=== PATIENT | female | born 1985 ===

== ENCOUNTER 2019-06-13 17:09 | Emergency (ER) | payer SELFPAY ==
[2019-06-13 17:18] VITALS: BP 142/85
--- NOTE | 2019-06-13 17:24 | Event Note ---
ED Screening Note Date of service: 06/13/19 Time: 17:17 ED Screening Note: 34 y o female presents cc of loss of sensation in hands and feet 20 minutes ago, cc of cramping This initial assessment/diagnostic orders/clinical plan/treatment(s) is/are subject to change based on patients health status, clinical progression and re- assessment by fellow clinical providers in the ED. Further treatment and workup at subsequent clinical providers discretion. Patient/guardian urged not to elope from the ED as their condition may be serious if not clinically assessed and managed. Initial orders include: cbc,bmp
[2019-06-13 18:20] LABS: BUN/Creatinine Ratio 32; Blood Urea Nitrogen 16 mg/dL (7-17); Calcium 9.5 mg/dL (8.4-10.2); Hemolysis Index 11
[2019-06-13 18:23] LABS: Basophils # (Auto) 0.1 K/mm3 (0.0-0.1); Basophils % (Auto) 0.6 % (0.0-1.8); Eosinophils # (Auto) 0.1 K/mm3 (0.0-0.4); Eosinophils % (Auto) 0.7 % (0.0-4.3); Hematocrit 40.3 % (30.3-42.9); Hemoglobin 13.8 gm/dl (10.1-14.3); Lymphocytes # (Auto) 2.3 K/mm3 (1.2-5.4); Mean Corpuscular HGB Conc 34 % (30-34); Mean Corpuscular Volume 92 fl (79-97); Monocytes # (Auto) 0.6 K/mm3 (0.0-0.8); Monocytes % (Auto) 7.3 % (0.0-7.3); Platelet Count 254 K/mm3 (140-440); Red Cell Distribution Width 12.4 % (13.2-15.2)
== END 2019-06-13 18:30 | disposition left against medical advice (07) ==
LOC: ED 17:09
DX: R20.0 Anesthesia of skin (principal); Z53.21 Procedure and treatment not carried out due to patient leaving prior to being seen by health care provider
CPT/HCPCS: 36415; 80048; 85025